=== PATIENT | female | born 1980 | race African-American/Black ===

== ENCOUNTER 2021-03-02 15:55 | Emergency (ER) | payer SELFPAY ==
[2021-03-02] MEDS ORDERED: Dexamethasone 10 MG/ML VIAL ONE (16:21)
== END 2021-03-02 16:36 | disposition home or self-care (01) ==
LOC: MADERS 15:55
DX: J02.9 Acute pharyngitis, unspecified (principal)
CPT/HCPCS: 87081; 87430; 99283; J1100

== ENCOUNTER 2023-11-04 21:01 | Emergency (ER) | payer OTHER ==
[2023-11-04] MEDS ORDERED: Orphenadrine Citrate 60 MG/2 ML VIAL ONE (21:43)
[2023-11-04] MEDS ORDERED: Lidocaine 4% Patch ONE (21:43)
[2023-11-04] MEDS ORDERED: Ketorolac Tromethamine 30 MG (1 mL) VIAL ONE (21:43)
== END 2023-11-04 22:03 | disposition home or self-care (01) ==
LOC: MADERS 21:01
DX: M54.2 Cervicalgia (principal)
CPT/HCPCS: 96372; 99283; J1885; J2360

== ENCOUNTER 2025-02-20 15:54 | Emergency (ER) | payer MEDICAID | END 2025-02-20 16:35 | disposition home or self-care (01) | LOC: MADERS 15:54 | DX: M79.2 Neuralgia and neuritis, unspecified (principal); R60.9 Edema, unspecified; I10 Essential (primary) hypertension | CPT/HCPCS: 99283 ==